=== PATIENT | female | born 1945 | race Caucasian/White ===

== ENCOUNTER 2017-11-11 08:16 | Emergency (ER) | payer MEDICARE, OTHER ==
--- NOTE | 2017-11-11 08:32 | EDM.PDOC ---
ED HPI GENERAL MEDICAL PROBLEM - General Chief Complaint: General Stated Complaint: ER Time Seen by Provider: 11/11/17 08:16 Source of Information: Reports: Patient, EMS Notes Reviewed, Family, RN, RN Notes Reviewed History Limitations: Reports: No Limitations - History of Present Illness INITIAL COMMENTS - FREE TEXT/NARRATIVE: Patient presents the emergency room at [facility] stating that around 3 AM this morning she was awoken with severe left shoulder pain and arm pain that radiated to the mid back. The patient states that she did not take anything for this. The patient states that she merely trying to get comfortable so she could fall back asleep. The patient states around 7 AM she had a syncopal episode with vomiting. At that time she called her daughter for assistance. EMS was then called. Upon arrival to the emergency room, the patient states her pain is located only in the left shoulder. No radiation down the left arm. The patient denies any shortness of breath. The patient denies any chest pain. The patient states she has some mid back pain that is more of an ache. The patient denies any focal neurological deficit. The patient currently is not having any ambulation problems. The patient states that when she does need to vomit she usually has a syncopal episode before after she vomits. Therefore this is nothing new. However the patient is concerned about the mid back and shoulder pain as she recently underwent PCI last month October 12, 2017 for a non-STEMI. The patient is concerned with her current symptoms given her recent cardiac history. The patient is currently taking Plavix and aspirin. The patient had an echocardiogram which showed an EF of 55% within normal limits. The patient is also diabetic and states that this is been well controlled. The patient is taking metoprolol and lisinopril for her blood pressure, which have been variable at times. 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 The patient is currently being treated for breast cancer. The patient states her last chemotherapy run was 2 days ago. The patient's recently had a CT scan on July 29, 2017 which did show progression of her cancer. 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: Endocrine/Metabolic History: Reports: Diabetes, Type II, Hypothyroidism Oncologic (Cancer) History: Reports: Breast, Other (See Below) Other Oncologic History: Recently diagnosed with stage 4 breast cancer - Past Surgical History Female Surgical History: Reports: Mastectomy, Oophorectomy Other Female Surgeries/Procedures: Bilateral masectomy Oncologic Surgical History: Reports: Mastectomy Other Oncologic Surgeries/Procedures: Bilateral Social & Family History - Tobacco Use Smoking Status *Q: Never Smoker ED ROS GENERAL - Review of Systems Review Of Systems: See Below Constitutional: Denies: Fever, Chills, Weakness Respiratory: Denies: Shortness of Breath, Cough Cardiovascular: Reports: Chest Pain (mid sternal into mid thoracic back), Palpitations GI/Abdominal: Reports: Nausea, Vomiting. Denies: Abdominal Pain Musculoskeletal: Reports: Shoulder Pain, Back Pain Skin: Reports: No Symptoms Neurological: Reports: No Symptoms. Denies: Dizziness, Headache ED EXAM, GENERAL - Physical Exam Exam: See Below Exam Limited By: No Limitations General Appearance: Alert, No Apparent Distress Respiratory/Chest: No Respiratory Distress, Lungs Clear, Normal Breath Sounds Cardiovascular: Normal Peripheral Pulses, Regular Rate, Rhythm Peripheral Pulses: 2+: Radial (L), Radial (R) GI/Abdominal: Soft, Non-Tender, Abnormal Bowel Sounds (Hypoactive) Back Exam: Normal Inspection Extremities: Normal Inspection Neurological: Alert, Oriented Skin Exam: Warm, Dry, Intact, Normal Color EKG INTERPRETATION EKG Date: 11/11/17 Time: 08:25 Rhythm: NSR Rate (Beats/Min): 97 [place]: Normal P-Wave: Present QRS: Normal ST-T: Normal QT: Normal OK/PQ Interval: 0.18 Comparison: No Change EKG Interpretation Comments: 1. Sinus Rhythm 2. Inferior MO, probably old Course - Vital Signs Last Recorded V/S: Last Vital Signs Temp 38.1 C 11/11/17 08:20 Pulse 102 H 11/11/17 08:20 Resp 20 11/11/17 08:20 BP 156/71 H 11/11/17 08:20 Pulse Ox 94 L 11/11/17 08:20 - Orders/Labs/Meds Orders: Active Orders 24 hr Category Date Time Status EKG 12 Lead [EKG Documentation Completion] [] STAT Care 11/11/17 08:33 EKG 12 Lead [EKG Documentation Completion] [RC] STAT Care 11/11/17 08:47 Active Implanted Port Access [RC] ONETIME Care 11/11/17 08:44 Active Chest 1V Frontal [CR] Stat Exams 11/11/17 08:34 Taken Sodium Chloride 0.9% [Saline Flush] Med 11/11/17 08:33 Active 10 ml FLUSH ASDIRECTED PRN Peripheral IV Insertion Adult [OM.PC] Routine Oth 11/11/17 08:33 Ordered Medication Orders Sodium Chloride (Saline Flush) 10 ml FLUSH ASDIRECTED PRN PRN Reason: Keep Vein Open Labs: Laboratory Tests 11/11/17 11/11/17 11/11/17 Range/Units 08:48 08:55 08:55 WBC 16.6 H (4.0-10.0) x10^3/uL RBC 3.15 L (4.00-5.50) x10^6/uL Hgb 10.7 L (12.0-16.0) g/dL Hct 31.9 L (33.0-47.0) % MCV 101.3 H D (78.0-93.0) fL MCH 34.0 H (26.0-32.0) pg MCHC 33.5 (32.0-36.0) g/dL RDW Coeff of [place] 13.1 (10.0-15.0) % Plt Count 128 L D (130-400) x10^3/uL Neut % (Auto) 97.1 H (50.0-80.0) % Lymph % (Auto) 2.0 L (25.0-50.0) % [place] % (Auto) 0.6 L (2.0-11.0) % Eos % (Auto) 0.2 (0.0-4.0) % Baso % (Auto) 0.1 L (0.2-1.2) % Sodium 135 L (136-145) mmol/L Potassium 4.7 (3.5-5.1) mmol/L Chloride 102 (98-107) mmol/L Carbon Dioxide 22 (21-32) mmol/L BUN 34 H (7-18) mg/dL Creatinine 1.5 H (0.55-1.02) mg/dL Est Cr Clr Drug Dosing TNP Estimated GFR (MDRD) 34 Glucose 239 H (74-106) mg/dL Lactic Acid (0.4-2.0) mmol/L Calcium 10.1 D (8.5-10.1) mg/dL Corrected Calcium 10.98 H (8.5-10.1) mg/dL Total Bilirubin 0.6 (0.2-1.0) mg/dL AST 12 L (15-37) U/L ALT 25 (14-59) U/L Alkaline Phosphatase 86 (46-116) U/L Creatine Kinase 29 (26-192) U/L Troponin I < 0.017 (<=0.056) ng/mL C-Reactive Protein (<=0.9) mg/dL Total Protein 7.1 (6.4-8.2) g/dL Albumin 2.9 L (3.4-5.0) g/dL Globulin 4.2 Albumin/Globulin Ratio 0.69 Amylase 74 (25-115) U/L Lipase 429 H (73-393) U/L Urine Color Light yellow (YELLOW) Urine Appearance Turbid H (CLEAR) Urine pH 5.5 (5.0-8.0) Ur Specific [place] 1.015 Urine Protein Trace H (NEGATIVE) mg/dL Urine Glucose (UA) Negative (NEGATIVE) mg/dL Urine Ketones Negative (NEGATIVE) mg/dL Urine Occult Blood Trace-lysed H (NEGATIVE) Urine Nitrite Positive H (NEGATIVE) Urine Bilirubin Negative (NEGATIVE) Urine Urobilinogen 0.2 (0.2) EU/dL Ur Leukocyte Esterase Trace H (NEGATIVE) Urine RBC 0-5 (NOT SEEN) /HPF Urine WBC 20-30 H (NOT SEEN) /HPF Urine WBC Clumps Few Ur Squamous Epith Cells Rare (NEGATIVE) /HPF Ur Renal Epithelial Cell Occasional H (NEGATIVE) /HPF Urine Bacteria Many H (NEGATIVE) /HPF Urine Mucus Few H (NEGATIVE) /LPF 11/11/17 11/11/17 Range/Units 08:55 08:55 WBC (4.0-10.0) x10^3/uL RBC (4.00-5.50) x10^6/uL Hgb (12.0-16.0) g/dL Hct (33.0-47.0) % MCV (78.0-93.0) fL MCH (26.0-32.0) pg MCHC (32.0-36.0) g/dL RDW Coeff of [place] (10.0-15.0) % Plt Count (130-400) x10^3/uL Neut % (Auto) (50.0-80.0) % Lymph % (Auto) (25.0-50.0) % [place] % (Auto) (2.0-11.0) % Eos % (Auto) (0.0-4.0) % Baso % (Auto) (0.2-1.2) % Sodium (136-145) mmol/L Potassium (3.5-5.1) mmol/L Chloride (98-107) mmol/L Carbon Dioxide (21-32) mmol/L BUN (7-18) mg/dL Creatinine (0.55-1.02) mg/dL Est Cr Clr Drug Dosing Estimated GFR (MDRD) Glucose (74-106) mg/dL Lactic Acid 2.0 (0.4-2.0) mmol/L Calcium (8.5-10.1) mg/dL Corrected Calcium (8.5-10.1) mg/dL Total Bilirubin (0.2-1.0) mg/dL AST (15-37) U/L ALT (14-59) U/L Alkaline Phosphatase (46-116) U/L Creatine Kinase (26-192) U/L Troponin I (<=0.056) ng/mL C-Reactive Protein 25.4 H (<=0.9) mg/dL Total Protein (6.4-8.2) g/dL Albumin (3.4-5.0) g/dL Globulin Albumin/Globulin Ratio Amylase (25-115) U/L Lipase (73-393) U/L Urine Color (YELLOW) Urine Appearance (CLEAR) Urine pH (5.0-8.0) Ur Specific [place] Urine Protein (NEGATIVE) mg/dL Urine Glucose (UA) (NEGATIVE) mg/dL Urine Ketones (NEGATIVE) mg/dL Urine Occult Blood (NEGATIVE) Urine Nitrite (NEGATIVE) Urine Bilirubin (NEGATIVE) Urine Urobilinogen (0.2) EU/dL Ur Leukocyte Esterase (NEGATIVE) Urine RBC (NOT SEEN) /HPF Urine WBC (NOT SEEN) /HPF Urine WBC Clumps Ur Squamous Epith Cells (NEGATIVE) /HPF Ur Renal Epithelial Cell (NEGATIVE) /HPF Urine Bacteria (NEGATIVE) /HPF Urine Mucus (NEGATIVE) /LPF Meds: Medications Generic Name Dose Route Start Last Admin Trade Name Freq PRN Reason Stop Dose Admin Sodium Chloride 10 ml 11/11/17 08:33 Saline Flush FLUSH ASDIRECTED PRN Keep Vein Open Discontinued Medications Generic Name Dose Route Start Last Admin Trade Name Freq PRN Reason Stop Dose Admin Heparin Sodium (Porcine) 500 units 11/11/17 10:21 Heparin Lock Flush 100 Units/Ml IVPUSH 11/11/17 10:22 ONETIME ONE Sodium Chloride 1,000 mls @ 999 mls/hr 11/11/17 08:45 11/11/17 09:05 Normal Saline IV 11/11/17 09:45 999 mls/hr ONETIME ONE Administration Ondansetron HCl 4 mg 11/11/17 09:10 11/11/17 09:20 Zofran IVPUSH 11/11/17 09:11 4 mg ONETIME ONE Administration Departure - Departure Time of Disposition: 10:35 Disposition: Home, Self-Care 01 Condition: Good Clinical Impression: Lung infiltrate Leukocytosis Qualifiers: Leukocytosis type: unspecified Qualified Code(s): D72.829 - Elevated white blood cell count, unspecified Fever Qualifiers: Fever type: unspecified Qualified Code(s): R50.9 - Fever, unspecified - Discharge Information Prescriptions: Amoxicillin/Potassium Clav [Augmentin 875-125 Tablet] 1 each PO BID 10 Days #20 tablet Instructions: Leukocytosis, Fever, Adult, [id number] Referrals: Marcin Schaefer III, DO [Primary Care Provider] - Forms: ED Department Discharge Additional Instructions: 1. Stay well hydrated and rest 2. Take antibiotic for the full coarse, even if you are feeling better 3. See your Primary in 7-10 days to make sure lungs are better 4. May use Tylenol for discomfort as well 5. Call with any questions/concerns - Problem List Review Problem List Initiated/Reviewed/Updated: Yes - My Orders Last 24 Hours: My Active Orders 11/11/17 08:33 EKG 12 Lead [EKG Documentation Completion] [RC] STAT Sodium Chloride 0.9% [Saline Flush] 10 ml FLUSH ASDIRECTED PRN Peripheral IV Insertion Adult [OM.PC] Routine 11/11/17 08:34 Chest 1V Frontal [CR] Stat 11/11/17 08:44 Implanted Port Access [RC] ONETIME 11/11/17 08:47 EKG 12 Lead [EKG Documentation Completion] [RC] STAT - Assessment/Plan Last 24 Hours: My Active Orders 11/11/17 08:33 EKG 12 Lead [EKG Documentation Completion] [RC] STAT Sodium Chloride 0.9% [Saline Flush] 10 ml FLUSH ASDIRECTED PRN Peripheral IV Insertion Adult [OM.PC] Routine 11/11/17 08:34 Chest 1V Frontal [CR] Stat 11/11/17 08:44 Implanted Port Access [RC] ONETIME 11/11/17 08:47 EKG 12 Lead [EKG Documentation Completion] [RC] STAT Assessment:: 1. LLL Infiltrate 2. Leukocytosis 3. Fever Plan: Thoroughly and extensively discussed the laboratory and chest x-ray findings with the patient. I did offer admission for the left lower lobe infiltrate, however the patient pleasantly declined. I did discuss the patient that if her symptoms become worse she needs to return at which time she will be admitted. I will start the patient on antibiotics for the left lower lobe infiltrate. This is also medically necessary because she is immunocompromised being on chemotherapy so puts her at a higher risk. Like the patient to follow-up in clinic over the next 7-10 days to check for resolution of the infiltrate. The patient verbalizes understanding and wishes to proceed. All questions answered. Patient was discharged in hemodynamically stable condition.
[2017-11-11] MEDS ORDERED: Sodium Chloride 0.9% 10 ML Syringe FLUSH PRN (08:33)
[2017-11-11] MEDS ORDERED: Sodium Chloride 0.9% 1,000 ML IV ONE (08:45)
[2017-11-11] MEDS ORDERED: Ondansetron 4 MG/2 ML SDV IVPUSH ONE (09:10)
[2017-11-11 09:38] LABS: CHLORIDE,CL 102 mmol/L (98-107); SODIUM,NA 135 mmol/L (136-145)
[2017-11-11 10:01] VITALS: BP 156/71
== END 2017-11-11 10:45 | disposition home or self-care (01) ==
LOC: VM.ED 08:16
DX: D72.829 Elevated white blood cell count, unspecified (principal); R91.8 Other nonspecific abnormal finding of lung field; E11.9 Type 2 diabetes mellitus without complications; E03.9 Hypothyroidism, unspecified
CPT/HCPCS: 71045; 80053; 81001; 82150; 82550; 83605; 83690; 84484; 85025; 86140; 93005; 96361; 96374; 99285; J1642; J2405; J7030; J7050

== ENCOUNTER 2017-11-12 10:15 | Inpatient (IN) | payer MEDICARE, OTHER ==
--- NOTE | 2017-11-12 11:18 | EDM.PDOC ---
ED HPI GENERAL MEDICAL PROBLEM - General Chief Complaint: General Stated Complaint: Shakey; Dizzy; labile BP Time Seen by Provider: 11/12/17 10:25 Source of Information: Reports: Patient, Family, Old Records, RN, RN Notes Reviewed History Limitations: Reports: No Limitations - History of Present Illness INITIAL COMMENTS - FREE TEXT/NARRATIVE: Patient presents to the ED at [facility] feeling dizzy, shakey, and somewhat nauseated. Symptoms started earlier this AM. She was seen in this ER yesterday and diagnosed with LLL infiltrate and placed on Augmentin. Patient has not had any vomiting. She feels her blood pressure has been labile. She is taking her medication as directed. Spoke with Dr. Sue Farmer this morning and states she is ok having the patient admitted to this facility despite being [facility] for chemo for tx of breast CA. CURB 65 score today is 2 with a 6.8% 30-day mortality. Onset: Today - Related Data Allergies Allergy/AdvReac Type Severity Reaction Status Date / Time Tkdjghp-Dby-Qsc Reductase Allergy Other Verified 11/12/17 10:45 Inhibitor Home Meds: Home Meds Amoxicillin/Potassium Clav [Augmentin 875-125 Tablet] 1 each PO BID 10 Days #20 tablet 11/11/17 [Rx] Ascorbic Acid [Vitamin C] 250 mg PO DAILY 11/12/17 [History] Aspirin [Halfprin] 81 mg PO DAILY 11/12/17 [History] Calcium Carb & Citrate/Vit D3 [Calcium + D3 ER Tablet] 1 each PO DAILY 11/12/17 [History] Cholecalciferol (Vitamin D3) [Vitamin D3] 5,000 unit PO DAILY 11/12/17 [History] Clopidogrel [Plavix] 75 mg PO DAILY 11/12/17 [History] Cyanocobalamin (Vitamin B-12) [B-12] 1,000 mcg PO DAILY 11/12/17 [History] Cyanocobalamin (Vitamin B-12) [Vitamin B-12] 100 mcg PO DAILY 11/12/17 [History] Ferrous Sulfate 325 mg PO DAILY 11/12/17 [History] Folic Acid 1 mg PO DAILY 11/12/17 [History] Furosemide [Lasix] 40 mg PO DAILY 11/12/17 [History] Levothyroxine 75 mcg PO ACBREAKFAST 11/12/17 [History] Lidocaine/Prilocaine [EMLA Crm] 1 dose TP ASDIRECTED PRN 11/12/17 [History] Lisinopril 40 mg PO DAILY 11/12/17 [History] Lovastatin [Mevacor] 20 mg PO WITHDINNER 11/12/17 [History] Lutein/Minerals/Vit A,C & E [Ocuvite] 1 tab PO DAILY 11/12/17 [History] Metoprolol Tartrate [Lopressor] 12.5 mg PO Q12HR 11/12/17 [History] Nitroglycerin 0.4 mg SL Q5M PRN 11/12/17 [History] Ondansetron HCl [Zofran] 8 mg PO TID PRN 11/12/17 [History] Potassium Chloride [Klor-Con M20] 40 meq PO DAILY 11/12/17 [History] Prochlorperazine Maleate [Compazine] 10 mg PO QID PRN 11/12/17 [History] Ubidecarenone [Coenzyme Q10] 100 mg PO DAILY 11/12/17 [History] amLODIPine [Norvasc] 5 mg PO DAILY 11/12/17 [History] glipiZIDE [Glipizide ER] 2.5 mg PO DAILY 11/12/17 [History] metFORMIN [Glucophage] 1,000 mg PO BIDMEALS 11/12/17 [History] Past Medical History Cardiovascular History: Reports: Hypertension Respiratory History: Reports: Other (See Below) 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: Endocrine/Metabolic History: Reports: Diabetes, Type II, Hypothyroidism Oncologic (Cancer) History: Reports: Breast, Other (See Below) Other Oncologic History: Recently diagnosed with stage 4 breast cancer - Past Surgical History HEENT Surgical History: Reports: Tonsillectomy Female Surgical History: Reports: Mastectomy, Oophorectomy Other Female Surgeries/Procedures: Bilateral masectomy Oncologic Surgical History: Reports: Mastectomy Other Oncologic Surgeries/Procedures: Bilateral Social & Family History - Tobacco Use Smoking Status *Q: Never Smoker - Recreational Drug Use Recreational Drug Use: No ED ROS GENERAL - Review of Systems Review Of Systems: See Below Constitutional: Reports: Weakness. Denies: Fever, Chills Respiratory: Denies: Shortness of Breath, Cough Cardiovascular: Denies: Chest Pain, Palpitations GI/Abdominal: Reports: Nausea. Denies: Abdominal Pain, Vomiting Skin: Reports: No Symptoms Neurological: Reports: Dizziness. Denies: Headache ED EXAM, GENERAL - Physical Exam Exam: See Below Exam Limited By: No Limitations General Appearance: Alert, No Apparent Distress Respiratory/Chest: No Respiratory Distress, Crackles (LLL) Cardiovascular: Normal Peripheral Pulses, Regular Rate, Rhythm Peripheral Pulses: 2+: Radial (L), Radial (R) GI/Abdominal: Soft, Non-Tender, Abnormal Bowel Sounds (Hypoactive) Neurological: Alert, Oriented Skin Exam: Warm, Dry, Intact, Normal Color, No Rash Course - Vital Signs Last Recorded V/S: Last Vital Signs Temp 36.6 C 11/12/17 10:20 Pulse 99 11/12/17 10:20 Resp 16 11/12/17 10:20 BP 126/57 L 11/12/17 10:20 Pulse Ox 95 11/12/17 10:20 - Orders/Labs/Meds Orders: Active Orders 24 hr Category Date Time Status Chest 2V [CR] Stat Exams 11/12/17 11:12 Taken CULTURE BLOOD [BC] Stat Lab 11/12/17 10:35 Results CULTURE BLOOD [BC] Stat Lab 11/12/17 10:40 Received Blood Culture x2 Reflex Set [OM.PC] Stat Oth 11/12/17 10:25 Ordered Medication Orders Sodium Chloride (Normal Saline) 1,000 mls @ 999 mls/hr IV ONETIME ONE Stop: 11/12/17 13:04 Sodium Chloride (Saline Flush) 10 ml FLUSH ASDIRECTED PRN PRN Reason: Keep Vein Open Labs: Laboratory Tests 11/12/17 11/12/17 11/12/17 Range/Units 10:40 10:40 10:40 WBC 16.5 H (4.0-10.0) x10^3/uL RBC 3.00 L (4.00-5.50) x10^6/uL Hgb 10.3 L (12.0-16.0) g/dL Hct 30.4 L (33.0-47.0) % MCV 101.3 H (78.0-93.0) fL MCH 34.3 H (26.0-32.0) pg MCHC 33.9 (32.0-36.0) g/dL RDW Coeff of [place] 13.2 (10.0-15.0) % Plt Count 134 (130-400) x10^3/uL Neut % (Auto) 97.4 H (50.0-80.0) % Lymph % (Auto) 1.9 L (25.0-50.0) % [place] % (Auto) 0.1 L (2.0-11.0) % Eos % (Auto) 0.5 (0.0-4.0) % Baso % (Auto) 0.1 L (0.2-1.2) % Sodium 134 L (136-145) mmol/L Potassium 4.3 (3.5-5.1) mmol/L Chloride 99 (98-107) mmol/L Carbon Dioxide 24 (21-32) mmol/L BUN 31 H (7-18) mg/dL Creatinine 1.6 H (0.55-1.02) mg/dL Est Cr Clr Drug Dosing 26.64 mL/min Estimated GFR (MDRD) 32 Glucose 373 H (74-106) mg/dL Lactic Acid 3.0 H* (0.4-2.0) mmol/L Calcium 9.5 (8.5-10.1) mg/dL C-Reactive Protein 35.1 H (<=0.9) mg/dL Meds: Medications Generic Name Dose Route Start Last Admin Trade Name Freq PRN Reason Stop Dose Admin Sodium Chloride 1,000 mls @ 999 mls/hr 11/12/17 12:04 Normal Saline IV 11/12/17 13:04 ONETIME ONE Sodium Chloride 10 ml 11/12/17 12:03 Saline Flush FLUSH ASDIRECTED PRN Keep Vein Open Discontinued Medications Generic Name Dose Route Start Last Admin Trade Name Freq PRN Reason Stop Dose Admin Cefepime HCl 2 gm 11/12/17 12:02 Maxipime IV 11/12/17 12:03 ONETIME ONE Departure - Departure Time of Disposition: 12:06 Disposition: Admitted As Inpatient 64 Condition: Good Clinical Impression: Lung infiltrate, Acute kidney injury (nontraumatic) Sepsis Qualifiers: Sepsis type: sepsis due to unspecified organism Qualified Code(s): A41.9 - Sepsis, unspecified organism - Discharge Information ED Communication - ED Communication Date/Time Date: 11/12/17 Time Called: 11:58 - Discussed Case With (1) Discussed Case With (1): Admitting Provider Person/s Notified (1): Daria Cerna - Conversation Summary Admitting Provider Agreed to Patient's Admission: Yes Patient Aware of Amendments fo Care Plan: Yes - Problem List Review Problem List Initiated/Reviewed/Updated: Yes - My Orders Last 24 Hours: My Active Orders 11/12/17 10:25 Blood Culture x2 Reflex Set [OM.PC] Stat 11/12/17 10:35 CULTURE BLOOD [BC] Stat 11/12/17 10:40 CULTURE BLOOD [BC] Stat 11/12/17 11:12 Chest 2V [CR] Stat - Assessment/Plan Last 24 Hours: My Active Orders 11/12/17 10:25 Blood Culture x2 Reflex Set [OM.PC] Stat 11/12/17 10:35 CULTURE BLOOD [BC] Stat 11/12/17 10:40 CULTURE BLOOD [BC] Stat 11/12/17 11:12 Chest 2V [CR] Stat Assessment:: Lung Infiltrate MARCO A Sepsis Plan: Case discussed with Dr. Cerna. Patient will be admitted acute for Sepsis, MARCO A , Lung infiltrate.
[2017-11-12] MEDS ORDERED: Cefepime 1 GM Vial IV ONE (12:02)
[2017-11-12] MEDS ORDERED: Sodium Chloride 0.9% 10 ML Syringe FLUSH PRN (12:03)
[2017-11-12] MEDS ORDERED: Sodium Chloride 0.9% 1,000 ML IV ONE (12:04)
[2017-11-12] MEDS ORDERED: Acetaminophen 325 MG Tab PO PRN (13:04)
[2017-11-12] MEDS ORDERED: Azithromycin 250 MG Tab PO ONE (13:29)
[2017-11-12] MEDS ORDERED: Lidocaine/Prilocaine 2.5-2.5% Crm 5 GM Tube TOP PRN (17:20)
[2017-11-12] MEDS ORDERED: Lactated Ringers 1,000 ML IV SCH (17:30)
--- NOTE | 2017-11-12 17:34 | PCM.HP ---
H&P History of Present Illness - General Date of Service: 11/12/17 Admit Problem/Dx: Admission Diagnosis/Problem Admission Diagnosis/Problem Sepsis Source of Information: Patient History Limitations: Reports: No Limitations - History of Present Illness Initial Comments - Free Text/Narative: Mrs. Sparks is a 72 yo female who presented to the ER this morning for evaluation of borderline blood pressures (90's/50's) at home with associated palpitations that were present when she woke up this morning. She had been seen in the ER yesterday for evaluation of left chest/scapula/shoulder pain and was ruled out for a cardiac process. There was concern for a left lung infiltrate. It was recommended that she get admitted for initial antibiotic therapy and she declined. She was started on augmentin and encouraged to return for worsening symptoms. She has had no recurrence of the pain for which she presented yesterday. But this morning when she woke up, she just did not feel well. She felt nauseous and was having palpitations. She checked her blood pressure and found it to be low. She has a chronic cough and chronic sinusitis that are essentially unchanged. She denies any shortness of breath. No fever or chills. No dysuria, frequency, urgency, flank pain, or abdominal pain. She really denies any other symptoms. She is currently being actively treated for breast cancer and got her most recent chemotherapy dose earlier this week. She tolerated this very well. - Related Data Allergies/Adverse Reactions: Allergies Allergy/AdvReac Type Severity Reaction Status Date / Time [id number] Reductase Allergy Other Verified 11/12/17 10:45 Inhibitor Home Medications: Home Meds Amoxicillin/Potassium Clav [Augmentin 875-125 Tablet] 1 each PO BID 10 Days #20 tablet 11/11/17 [Rx] Ascorbic Acid [Vitamin C] 250 mg PO DAILY 11/12/17 [History] Aspirin [Halfprin] 81 mg PO DAILY 11/12/17 [History] Calcium Carb & Citrate/Vit D3 [Calcium + D3 ER Tablet] 2 each PO DAILY 11/12/17 [History] Cholecalciferol (Vitamin D3) [Vitamin D3] 5,000 unit PO DAILY 11/12/17 [History] Clopidogrel [Plavix] 75 mg PO DAILY 11/12/17 [History] Cyanocobalamin (Vitamin B-12) [B-12] 1,000 mcg PO DAILY 11/12/17 [History] Ferrous Sulfate 325 mg PO DAILY 11/12/17 [History] Folic Acid 1 mg PO DAILY 11/12/17 [History] Furosemide [Lasix] 40 mg PO DAILY 11/12/17 [History] Levothyroxine 75 mcg PO ACBREAKFAST 11/12/17 [History] Lidocaine/Prilocaine [EMLA Crm] 1 dose TP ASDIRECTED PRN 11/12/17 [History] Lisinopril 40 mg PO DAILY 11/12/17 [History] Lovastatin 20 mg PO BEDTIME 11/12/17 [History] Metoprolol Tartrate [Lopressor] 12.5 mg PO BID 11/12/17 [History] Multivitamin with Minerals [Multiple Vitamin] 1 tab PO DAILY 11/12/17 [History] Nitroglycerin 0.4 mg SL Q5M PRN 11/12/17 [History] Ondansetron HCl [Zofran] 8 mg PO TID PRN 11/12/17 [History] Potassium Chloride [Klor-Con M20] 40 meq PO DAILY 11/12/17 [History] Prochlorperazine Maleate [Compazine] 10 mg PO QID PRN 11/12/17 [History] Ubidecarenone [Coenzyme Q10] 100 mg PO DAILY 11/12/17 [History] amLODIPine Besylate [Amlodipine Besylate] 5 mg PO DAILY 11/12/17 [History] glipiZIDE [Glipizide ER] 2.5 mg PO DAILY 11/12/17 [History] metFORMIN [Glucophage] 1,000 mg PO BIDMEALS 11/12/17 [History] Past Medical History HEENT History: Reports: None Cardiovascular History: Reports: CAD, High Cholesterol, Hypertension, [place], PTCA Respiratory History: Reports: Other (See Below) 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 Gastrointestinal History: Reports: None Genitourinary History: Reports: None [employer] History: Reports: Musculoskeletal History: Reports: None Neurological History: Reports: None Psychiatric History: Reports: None Endocrine/Metabolic History: Reports: Diabetes, Type II, Hypothyroidism Hematologic History: Reports: None Immunologic History: Reports: None Oncologic (Cancer) History: Reports: Breast, Other (See Below) Other Oncologic History: Recently diagnosed with stage 4 breast cancer Dermatologic History: Reports: None - Infectious Disease History Infectious Disease History: Reports: None - Past Surgical History HEENT Surgical History: Reports: Tonsillectomy Female Surgical History: Reports: Hysterectomy, Mastectomy, Oophorectomy Other Female Surgeries/Procedures: Bilateral masectomy Oncologic Surgical History: Reports: Mastectomy Other Oncologic Surgeries/Procedures: Bilateral Social & Family History - Family History Cardiac: Reports: CAD Endocrine/Metabolic: Reports: Diabetes, type II, Hypothyroidism - Tobacco Use Smoking Status *Q: Never Smoker - Alcohol Use Alcohol Use History: No Alcohol Use in Last Twelve Months: No - Recreational Drug Use Recreational Drug Use: No - Living Situation & Occupation Living situation: Reports: , Alone Occupation: Retired H&P Review of Systems - Review of Systems: Review Of Systems: See Below General: Reports: Malaise, Weakness, Fatigue HEENT: Reports: No Symptoms Pulmonary: Reports: Cough. Denies: Shortness of Breath, Pleuritic Chest Pain Cardiovascular: Reports: No Symptoms Gastrointestinal: Reports: No Symptoms Genitourinary: Reports: No Symptoms Musculoskeletal: Reports: No Symptoms Skin: Reports: No Symptoms Psychiatric: Reports: No Symptoms Neurological: Reports: No Symptoms Exam - Exam Exam: See Below - Vital Signs Vital Signs: Last Vital Signs Temp 36.8 C 11/12/17 17:08 Pulse 89 11/12/17 17:08 Resp 18 11/12/17 17:08 BP 113/56 L 11/12/17 17:08 Pulse Ox 95 11/12/17 17:08 Weight: 72.575 kg - Exam General: Alert, Oriented, Cooperative HEENT: Conjunctiva Clear, Mucosa Moist & [place], Posterior Pharynx Clear, Pupils Equal, Pupils Reactive, TMs Clear Neck: Supple, Trachea Midline. No: Lymphadenopathy, Thyromegaly Lungs: Normal Respiratory Effort, Crackles (left lower lobe; lungs otherwise clear bilaterally) Cardiovascular: Normal S1, Normal S2, Irregular Rhythm, Tachycardia. No: Systolic Murmur, Diastolic Murmur GI/Abdominal Exam: Normal Bowel Sounds, Soft, Non-Tender, No Organomegaly, No Distention, No Mass Extremities: Normal Inspection, Non-Tender, No Pedal Edema, Normal Capillary Refill Peripheral Pulses: 2+: Radial (L), Radial (R), Posterior Tibial (L), Posterior Tibial (R) Skin: Warm, Dry, Intact Neuro Extensive - Mental Status: Alert, Oriented x3, Normal Mood/Affect, Normal Cognition - Patient Data Lab Results Last 24 hrs: Laboratory Results - last 24 hr 11/12/17 Range/Units 17:14 POC Glucose 364 H (74-106) mg/dL Result Diagrams: 11/12/17 10:40 11/12/17 10:40 *Q Meaningful Use (ADM) - VTE *Q VTE Criteria *Q: - Stroke *Q Stroke Criteria *Q: - AMI *Q AMI Criteria *Q: - Problem List (1) Community acquired pneumonia SNOMED Code(s): 535385896 ICD Code: J18.9 - PNEUMONIA, UNSPECIFIED ORGANISM Status: Acute Current Visit: Yes Problem Details: - Patient is not really having traditional symptoms. - Only symptom really was the left chest/scapula pain, which is now resolved. - However, she does have exam and chest x-ray findings suggesting a left lower lobe pneumonia. - U/A yesterday was borderline but she is not having any UTI symptoms. No symptoms of any other infectious source. - Therefore, most likely diagnosis is community acquired pneumonia. - She is not ill appearing enough to justify full treatment for hospital acquired pneumonia, especially in light of no worsening overnight with only treatment with augmentin. - Would treat a little more broadly than for usual community acquired pneumonia and do cefepime instead of ceftriaxone. Will also add azithromycin. - Will have a low threshold for addition of vancomycin and a fluoroquinolone. - Recheck labs in the am. Qualifiers: Laterality: left Lung location: lower lobe of lung Qualified Code(s): J18.1 - Lobar pneumonia, unspecified organism (2) Sepsis SNOMED Code(s): 41095557 ICD Code: A41.9 - SEPSIS, UNSPECIFIED ORGANISM Status: Acute Current Visit: Yes Problem Details: - Meets sepsis criteria with tachycardia and leukocytosis. - Likely source is CAP as above. - Antibiotics as above. - Initial lactate elevated. Patient will recieve IV fluids. Had planned recheck in 6 hours but this was not done until a bit later than that. Is down but still high. IV fluids will be continued and lactate will be rechecked in the am. - Blood cultures pending. Qualifiers: Sepsis type: sepsis due to unspecified organism Qualified Code(s): A41.9 - Sepsis, unspecified organism (3) Acute kidney injury (nontraumatic) SNOMED Code(s): 88876862 ICD Code: N17.9 - ACUTE KIDNEY FAILURE, UNSPECIFIED Status: Acute Current Visit: Yes Problem Details: - Creatinine up to 1.6 from baseline of 1.1-1.2. - Likely prerenal. - As above, patient will get IV fluids. - Will recheck in the am. - Further work-up will be pursued of does not improve with fluids only. (4) Atrial fibrillation SNOMED Code(s): 24894553 ICD Code: I48.91 - UNSPECIFIED ATRIAL FIBRILLATION Status: Acute Current Visit: Yes Problem Details: - EKG in the ER shows atrial fibrillation with controlled ventricular response. - Discussed this diagnosis briefly. - Rate controlled on current metoprolol dosing. - Likely secondary to stress of acute illness and dehydration. - Patient is already on dual anti-platelet therapy that cannot really be changed this close to her PCI. - She already converted by the time she got to the floor. - Her CHADS2-VASC is high at 5 but given short duration of the atrial fibrillation, no urgency for anticoagulation. - She is on telemetry and will be monitored for any recurrence. - She will need cardiology follow-up as an outpatient and this can be sorted out at that time. Qualifiers: Atrial fibrillation type: paroxysmal Qualified Code(s): I48.0 - Paroxysmal atrial fibrillation (5) Coronary artery disease SNOMED Code(s): 55503006 ICD Code: I25.10 - ATHSCL HEART DISEASE OF [place] CORONARY ARTERY W/O ANG PCTRS Status: Chronic Current Visit: Yes Problem Details: - Underwent PCI in September and is doing well. - Ruled out for cardiac cause of symptoms yesterday. Only had 1 troponin but that was 6 hours after her symptoms started so 1 is adequate. - Continue home medications. Qualifiers: Coronary Disease-Associated Artery/Lesion type: [place] artery [place] vs. transplanted heart: [place] heart Associated angina: without angina Qualified Code(s): I25.10 - Atherosclerotic heart disease of [place] coronary artery without angina pectoris (6) Diabetes mellitus SNOMED Code(s): 71773921 ICD Code: E11.9 - TYPE 2 DIABETES MELLITUS WITHOUT COMPLICATIONS Status: Chronic Current Visit: Yes Problem Details: - Glucose high on admission. - Hold metformin in light of MARCO A and lactic acidosis. - Continue glipizide. - QID glucoses with low dose insulin correction scale. Qualifiers: Diabetes mellitus type: type 2 Diabetes mellitus complication status: without complication Diabetes mellitus halfway insulin use: without director of agriculture use Qualified Code(s): E11.9 - Type 2 diabetes mellitus without complications (7) Hypertension SNOMED Code(s): 73256560 ICD Code: I10 - ESSENTIAL (PRIMARY) HYPERTENSION Status: Chronic Current Visit: Yes Problem Details: - BP's acceptable at this time. - Will hold lisinopril and lasix until we see what her creatinine is tomorrow. Continue amlodipine and metoprolol. Qualifiers: Hypertension type: essential hypertension Qualified Code(s): I10 - Essential (primary) hypertension (8) Hypothyroidism SNOMED Code(s): 91250039 ICD Code: E03.9 - HYPOTHYROIDISM, UNSPECIFIED Status: Chronic Current Visit: Yes Problem Details: - Levothyroxine continued. Qualifiers: Hypothyroidism type: acquired Qualified Code(s): E03.9 - Hypothyroidism, unspecified (9) Breast cancer, stage 4 SNOMED Code(s): 412778552 ICD Code: C50.919 - MALIGNANT NEOPLASM OF UNSP SITE OF UNSPECIFIED FEMALE BREAST Status: Chronic Current Visit: Yes Problem Details: - Patient's oncologist was contacted and did not feel she required transfer to [place]. Her chemotherapy agent is not likely to cause significant neutropenia or other issues. Qualifiers: Laterality: unspecified laterality Qualified Code(s): C50.919 - Malignant neoplasm of unspecified site of unspecified female breast Problem List Initiated/Reviewed/Updated: Yes Orders Last 24hrs: Active Orders 24 hr Category Date Time Status Antiembolic Devices [RC] 08,20 Care 11/12/17 13:06 Active Blood Glucose Check, Bedside [RC] 07,11,17,20 Care 11/12/17 13:04 Active Cardiac Monitoring [RC] 06,10,14,18,22,02 Care 11/12/17 13:04 Active Implanted Port Access [RC] DAILY Care 11/12/17 12:17 Active Notify Provider Vital Signs [RC] 06,10,14,18,22,02 Care 11/12/17 13:04 Active Oxygen Therapy [RC] .PRN Care 11/12/17 13:04 Active Up With Assistance [RC] ASDIRECTED Care 11/12/17 13:04 Active VTE/DVT Education [RC] .PRN Care 11/12/17 13:04 Active Vital Signs [RC] 06,10,14,18,22,02 Care 11/12/17 13:04 Active Regular Diet [DIET] Diet 11/12/17 Dinner Active BASIC METABOLIC PANEL,BMP [CHEM] Routine Lab 11/13/17 05:11 Ordered C-REACTIVE PROTEIN [CHEM] Routine Lab 11/13/17 05:11 Ordered CBC WITH AUTO DIFF [HEME] Routine Lab 11/13/17 05:11 Ordered LACTIC ACID [CHEM] Routine Lab 11/12/17 17:18 Ordered Acetaminophen [Tylenol] Med 11/12/17 13:04 Active 650 mg PO Q4H PRN Aspirin [Halfprin] Med 11/13/17 08:00 Ordered 81 mg PO DAILY Clopidogrel [Plavix] Med 11/13/17 08:00 Ordered 75 mg PO DAILY Lactated Ringers @ 100 MLS/HR(1,000ml) Med 11/12/17 17:30 Ordered Lactated Ringers [Ringers, Lactated] 1,000 ml IV ASDIRECTED Levothyroxine Med 11/13/17 07:00 Ordered 75 mcg PO ACBREAKFAST Lidocaine/Prilocaine [EMLA Crm] Med 11/12/17 17:20 Ordered 1 dose TOP ASDIRECTED PRN Lovastatin [Lovastatin] Med 11/12/17 20:00 Ordered 20 mg PO BEDTIME Metoprolol Tartrate [Lopressor] Med 11/12/17 20:00 Ordered 12.5 mg PO BID Ondansetron HCl Med 11/12/17 17:20 Ordered 8 mg PO TID PRN Sodium Chloride 0.9% [Saline Flush] Med 11/12/17 12:03 Active 10 ml FLUSH ASDIRECTED PRN amLODIPine [Norvasc] Med 11/13/17 08:00 Ordered 5 mg PO DAILY glipiZIDE [Glucotrol XL] Med 11/13/17 08:00 Ordered 2.5 mg PO DAILY Peripheral IV Insertion Adult [OM.PC] Routine Oth 11/12/17 12:03 Ordered Sequential Compression Device [OM.PC] Per Unit Routine Oth 11/12/17 13:05 Ordered Resuscitation Status Routine Resus Stat 11/12/17 13:04 Ordered Medication Orders Acetaminophen (Tylenol) 650 mg PO Q4H PRN PRN Reason: Pain (Mild 1-3)/fever Amlodipine Besylate (Norvasc) 5 mg PO DAILY [facility] Aspirin (Halfprin) 81 mg PO DAILY [facility] Clopidogrel Bisulfate (Plavix) 75 mg PO DAILY [facility] Glipizide (Glucotrol Xl) 2.5 mg PO DAILY [facility] Lactated Ringer's (Ringers, Lactated) 1,000 mls @ 100 mls/hr IV ASDIRECTED [facility]ORGE Stop: 11/13/17 03:31 Levothyroxine Sodium (Levothyroxine) 75 mcg PO ACBREAKFAST JORGE Lidocaine/Prilocaine (Emla Crm) gm TOP ASDIRECTED PRN PRN Reason: port access Metoprolol Tartrate (Lopressor) 12.5 mg PO BID [facility]GE Non-Formulary Medication (Lovastatin [Lovastatin]) 20 mg PO BEDTIME [facility] Non-Formulary Medication (Ondansetron Hcl) 8 mg PO TID PRN PRN Reason: Nausea Sodium Chloride (Saline Flush) 10 ml FLUSH ASDIRECTED PRN PRN Reason: Keep Vein Open Assessment/Plan Comment:: 72 yo female admitted with sepsis and MARCO A secondary to community acquired pneumonia. See details under problems above. She will be treated with cefepime and azithromycin. Hold vitamins and metformin. Also hold lisinopril and lasix until lab results tomorrow am. Otherwise, continue home medications. She meets criteria for inpatient admission. Certainly would anticipate 2 nights of admission as well; however, the patient is very interested in getting home as soon as possible. Therefore, we will see how she is tomorrow and then go from there. Will hold off on pharmacologic VTE prophylaxis until it is determined what her length of stay will be. She is also at risk for bleeding in light of dual antiplatelet therapy. Will do SCD's and encourage ambulation. Code status is full.
[2017-11-12] MEDS ORDERED: Ondansetron 4 MG Tab.DIS PO PRN (17:36)
[2017-11-12] MEDS: Insulin Aspart 100 Units/ML 3 ML Pen SUBCUT SCH (18:47)
[2017-11-12] MEDS: Metoprolol Tartrate 25 MG Tab PO SCH (19:54)
[2017-11-12] MEDS ORDERED: [UNRECOGNIZED DRUG - REMARK] PO SCH (20:00)
[2017-11-12] MEDS ORDERED: Melatonin 3 MG Tab PO SCH (21:00)
[2017-11-13] MEDS ORDERED: Levothyroxine 75 MCG Tab PO SCH (07:00)
[2017-11-13] MEDS: Metoprolol Tartrate 25 MG Tab PO SCH (07:44)
[2017-11-13] MEDS: Insulin Aspart 100 Units/ML 3 ML Pen SUBCUT SCH (07:47)
[2017-11-13] MEDS ORDERED: Clopidogrel 75 MG Tab PO SCH (08:00)
[2017-11-13] MEDS ORDERED: glipiZIDE 2.5 MG Tab.ER PO SCH (08:00)
[2017-11-13] MEDS ORDERED: amLODIPine 5 MG Tab PO SCH (08:00)
[2017-11-13] MEDS ORDERED: Aspirin 81 MG Tab.EC PO SCH (08:00)
--- NOTE | 2017-11-13 09:10 | PCM.DCSUM1 ---
Discharge Summary - Discharge Data Discharge Disposition: Home, Self-Care 01 Condition: Good - Discharge Plan Home Medications: Home Meds Amoxicillin/Potassium Clav [Augmentin 875-125 Tablet] 1 each PO BID 10 Days #20 tablet 11/11/17 [Rx] Ascorbic Acid [Vitamin C] 250 mg PO DAILY 11/12/17 [History] Aspirin [Halfprin] 81 mg PO DAILY 11/12/17 [History] Calcium Carb & Citrate/Vit D3 [Calcium + D3 ER Tablet] 2 each PO DAILY 11/12/17 [History] Cholecalciferol (Vitamin D3) [Vitamin D3] 5,000 unit PO DAILY 11/12/17 [History] Clopidogrel [Plavix] 75 mg PO DAILY 11/12/17 [History] Cyanocobalamin (Vitamin B-12) [B-12] 1,000 mcg PO DAILY 11/12/17 [History] Ferrous Sulfate 325 mg PO DAILY 11/12/17 [History] Folic Acid 1 mg PO DAILY 11/12/17 [History] Furosemide [Lasix] 40 mg PO DAILY 11/12/17 [History] Levothyroxine 75 mcg PO ACBREAKFAST 11/12/17 [History] Lidocaine/Prilocaine [EMLA Crm] 1 dose TP ASDIRECTED PRN 11/12/17 [History] Lisinopril 40 mg PO DAILY 11/12/17 [History] Lovastatin 20 mg PO BEDTIME 11/12/17 [History] Metoprolol Tartrate [Lopressor] 12.5 mg PO BID 11/12/17 [History] Multivitamin with Minerals [Multiple Vitamin] 1 tab PO DAILY 11/12/17 [History] Nitroglycerin 0.4 mg SL Q5M PRN 11/12/17 [History] Ondansetron HCl [Zofran] 8 mg PO TID PRN 11/12/17 [History] Potassium Chloride [Klor-Con M20] 40 meq PO DAILY 11/12/17 [History] Prochlorperazine Maleate [Compazine] 10 mg PO QID PRN 11/12/17 [History] Ubidecarenone [Coenzyme Q10] 100 mg PO DAILY 11/12/17 [History] amLODIPine Besylate [Amlodipine Besylate] 5 mg PO DAILY 11/12/17 [History] glipiZIDE [Glipizide ER] 2.5 mg PO DAILY 11/12/17 [History] metFORMIN [Glucophage] 1,000 mg PO BIDMEALS 11/12/17 [History] Forms: ED Department Discharge Referrals: Marcin Schaefer III, DO [Primary Care Provider] - 11/16/17 2:30 pm (You have a follow up appt. with Dr. Schaefer on November 16, 2017 at 2:30--[facility]) - Patient Data Vitals - Most Recent: Last Vital Signs Temp 36.7 C 11/13/17 05:48 Pulse 78 11/13/17 05:48 Resp 20 11/13/17 05:48 BP 125/61 11/13/17 07:44 Pulse Ox 94 L 11/13/17 05:48 Weight - Most Recent: 75.931 kg I&O - Last 24 hours: Intake & Output 11/12/17 11/13/17 11/13/17 22:59 06:59 14:59 Intake Total 1710 120 Output Total 200 1400 Balance -200 310 120 Lab Results - Last 24 hrs: Laboratory Results - last 24 hr 11/12/17 11/12/17 11/12/17 Range/Units 17:14 17:54 19:51 WBC (4.0-10.0) x10^3/uL RBC (4.00-5.50) x10^6/uL Hgb (12.0-16.0) g/dL Hct (33.0-47.0) % MCV (78.0-93.0) fL MCH (26.0-32.0) pg MCHC (32.0-36.0) g/dL RDW Coeff of [place] (10.0-15.0) % Plt Count (130-400) x10^3/uL Neut % (Auto) (50.0-80.0) % Lymph % (Auto) (25.0-50.0) % [place] % (Auto) (2.0-11.0) % Eos % (Auto) (0.0-4.0) % Baso % (Auto) (0.2-1.2) % Sodium (136-145) mmol/L Potassium (3.5-5.1) mmol/L Chloride (98-107) mmol/L Carbon Dioxide (21-32) mmol/L BUN (7-18) mg/dL Creatinine (0.55-1.02) mg/dL Est Cr Clr Drug Dosing mL/min Estimated GFR (MDRD) Glucose (74-106) mg/dL POC Glucose 364 H 275 H (74-106) mg/dL Lactic Acid 2.2 H* (0.4-2.0) mmol/L Calcium (8.5-10.1) mg/dL C-Reactive Protein (<=0.9) mg/dL 11/13/17 11/13/17 11/13/17 Range/Units 06:12 06:51 06:51 WBC 8.5 (4.0-10.0) x10^3/uL RBC 2.51 L (4.00-5.50) x10^6/uL Hgb 8.4 L D (12.0-16.0) g/dL Hct 25.2 L (33.0-47.0) % MCV 100.4 H (78.0-93.0) fL MCH 33.5 H (26.0-32.0) pg MCHC 33.3 (32.0-36.0) g/dL RDW Coeff of [place] 12.7 (10.0-15.0) % Plt Count 122 L (130-400) x10^3/uL Neut % (Auto) 91.7 H (50.0-80.0) % Lymph % (Auto) 6.0 L (25.0-50.0) % [place] % (Auto) 0.6 L (2.0-11.0) % Eos % (Auto) 1.6 (0.0-4.0) % Baso % (Auto) 0.1 L (0.2-1.2) % Sodium 136 (136-145) mmol/L Potassium 3.7 (3.5-5.1) mmol/L Chloride 103 (98-107) mmol/L Carbon Dioxide 22 (21-32) mmol/L BUN 20 H (7-18) mg/dL Creatinine 1.2 H (0.55-1.02) mg/dL Est Cr Clr Drug Dosing 35.52 mL/min Estimated GFR (MDRD) 44 Glucose 171 H (74-106) mg/dL POC Glucose 171 H (74-106) mg/dL Lactic Acid (0.4-2.0) mmol/L Calcium 8.8 (8.5-10.1) mg/dL C-Reactive Protein 32.7 H (<=0.9) mg/dL 11/13/17 Range/Units 06:51 WBC (4.0-10.0) x10^3/uL RBC (4.00-5.50) x10^6/uL Hgb (12.0-16.0) g/dL Hct (33.0-47.0) % MCV (78.0-93.0) fL MCH (26.0-32.0) pg MCHC (32.0-36.0) g/dL RDW Coeff of [place] (10.0-15.0) % Plt Count (130-400) x10^3/uL Neut % (Auto) (50.0-80.0) % Lymph % (Auto) (25.0-50.0) % [place] % (Auto) (2.0-11.0) % Eos % (Auto) (0.0-4.0) % Baso % (Auto) (0.2-1.2) % Sodium (136-145) mmol/L Potassium (3.5-5.1) mmol/L Chloride (98-107) mmol/L Carbon Dioxide (21-32) mmol/L BUN (7-18) mg/dL Creatinine (0.55-1.02) mg/dL Est Cr Clr Drug Dosing mL/min Estimated GFR (MDRD) Glucose (74-106) mg/dL POC Glucose (74-106) mg/dL Lactic Acid 0.7 (0.4-2.0) mmol/L Calcium (8.5-10.1) mg/dL C-Reactive Protein (<=0.9) mg/dL Med Orders - Current: Current Medications Acetaminophen (Tylenol) 650 mg PO Q4H PRN PRN Reason: Pain (Mild 1-3)/fever Amlodipine Besylate (Norvasc) 5 mg PO DAILY [facility] Last Admin: 11/13/17 07:43 Dose: 5 mg Aspirin (Halfprin) 81 mg PO DAILY [facility] Last Admin: 11/13/17 07:43 Dose: 81 mg Clopidogrel Bisulfate (Plavix) 75 mg PO DAILY [facility] Last Admin: 11/13/17 07:44 Dose: 75 mg Glipizide (Glucotrol Xl) 2.5 mg PO DAILY [facility] Last Admin: 11/13/17 07:43 Dose: 2.5 mg Insulin Aspart (Novolog) 0 unit SUBCUT TIDMEALS [facility] PRN Reason: Protocol Last Admin: 11/13/17 07:47 Dose: 1 units Levothyroxine Sodium (Levothyroxine) 75 mcg PO ACBREAKFAST [facility] Last Admin: 11/13/17 06:13 Dose: 75 mcg Lidocaine/Prilocaine (Emla Crm) 0 gm TOP ASDIRECTED PRN PRN Reason: port access Melatonin (Melatonin) 3 mg PO BEDTIME [facility] Last Admin: 11/12/17 21:03 Dose: 3 mg Metoprolol Tartrate (Lopressor) 12.5 mg PO BID [facility] Last Admin: 11/13/17 07:44 Dose: 12.5 mg Non-Form (Lovastatin 20 Mg) 20 mg PO BEDTIME [facility] Ondansetron HCl (Zofran Odt) 8 mg PO TID PRN PRN Reason: NAUSEA Sodium Chloride (Saline Flush) 10 ml FLUSH ASDIRECTED PRN PRN Reason: Keep Vein Open Discontinued Medications Azithromycin (Zithromax) 500 mg PO ONETIME ONE Stop: 11/12/17 13:30 Last Admin: 11/12/17 13:45 Dose: 500 mg Cefepime HCl (Maxipime) 2 gm IV ONETIME ONE Stop: 11/12/17 12:03 Last Admin: 11/12/17 12:42 Dose: 2 gm Sodium Chloride (Normal Saline) 1,000 mls @ 999 mls/hr IV ONETIME ONE Stop: 11/12/17 13:04 Last Admin: 11/12/17 12:42 Dose: 999 mls/hr Lactated Ringer's (Ringers, Lactated) 1,000 mls @ 100 mls/hr IV ASDIRECTED [facility] Stop: 11/13/17 03:31 Last Admin: 11/12/17 17:44 Dose: 100 mls/hr *Q Meaningful Use (DIS) - VTE *Q VTE Criteria *Q: - Stroke *Q Stroke Criteria *Q: - AMI *Q AMI Criteria *Q:
[2017-11-13] MEDS ORDERED: Sodium Chloride 0.9% 10 ML Syringe IV PRN (09:15)
--- NOTE | 2017-11-13 10:14 | PCM.DCSUM1 ---
Discharge Summary - Hospital Course Brief History: Mrs. Sparks is a 72 yo female who was admitted for presumed community acquired pneumonia and dehydration after presenting with generalized weakness. The day before she had been seen in the ER for chest/scapular pain that had resolved by the time she presented yesterday. - Discharge Data Discharge Date: 11/13/17 Discharge Disposition: Home, Self-Care 01 Condition: Good - Discharge Diagnosis/Problem(s) (1) Community acquired pneumonia SNOMED Code(s): 820685461 ICD Code: J18.9 - PNEUMONIA, UNSPECIFIED ORGANISM Status: Acute Current Visit: Yes Problem Details: Patient never really had traditional symptoms. Only symptom really was the left chest/scapula pain, which is now resolved. However, her exam and chest x-ray findings suggested a left lower lobe pneumonia. There was no other convincing evidence of an alternative source. Therefore, she was treated for pneumonia with cefepime and azithromycin and responded quickly to this. Qualifiers: Laterality: left Lung location: lower lobe of lung Qualified Code(s): J18.1 - Lobar pneumonia, unspecified organism (2) Sepsis SNOMED Code(s): 38509397 ICD Code: A41.9 - SEPSIS, UNSPECIFIED ORGANISM Status: Acute Current Visit: Yes Problem Details: Met sepsis criteria on admission with tachycardia and leukocytosis. Likely source is pneumonia as above. Antibiotics as above. Initial lactate elevated; back to normal this am with IV fluids. Blood cultures pending but negative thus far. Qualifiers: Sepsis type: sepsis due to unspecified organism Qualified Code(s): A41.9 - Sepsis, unspecified organism (3) Acute kidney injury (nontraumatic) SNOMED Code(s): 91232524 ICD Code: N17.9 - ACUTE KIDNEY FAILURE, UNSPECIFIED Status: Acute Current Visit: Yes Problem Details: Creatinine up to 1.6 on admission from baseline of 1.1-1.2. Is back to normal today with IV fluids yesterday/ overnight. (4) Atrial fibrillation SNOMED Code(s): 96613955 ICD Code: I48.91 - UNSPECIFIED ATRIAL FIBRILLATION Status: Acute Current Visit: Yes Problem Details: EKG in the ER showed atrial fibrillation with controlled ventricular response. She had converted back to sinus rhythm by the time she arrived to the floor, meaning this was a duration of less than 24 hours. In light of this as well as the fact she is on dual antiplatelet therapy , anticoagulation was not started. She will need to follow-up with her PCP and get established with a risk consultant. Qualifiers: Atrial fibrillation type: paroxysmal Qualified Code(s): I48.0 - Paroxysmal atrial fibrillation (5) Coronary artery disease SNOMED Code(s): 10661770 ICD Code: I25.10 - ATHSCL HEART DISEASE OF [place] CORONARY ARTERY W/O ANG PCTRS Status: Chronic Current Visit: Yes Problem Details: Underwent PCI in September and is doing well. Ruled out for cardiac cause of symptoms day before admission. Home medications continued. Qualifiers: Coronary Disease-Associated Artery/Lesion type: [place] artery [place] vs. transplanted heart: [place] heart Associated angina: without angina Qualified Code(s): I25.10 - Atherosclerotic heart disease of [place] coronary artery without angina pectoris (6) Diabetes mellitus SNOMED Code(s): 04158953 ICD Code: E11.9 - TYPE 2 DIABETES MELLITUS WITHOUT COMPLICATIONS Status: Chronic Current Visit: Yes Problem Details: Glucoses high on admission but have come down nicely. Metformin was held but can be restarted on discharge. Glipizide continued. Qualifiers: Diabetes mellitus type: type 2 Diabetes mellitus complication status: without complication Diabetes mellitus exterminator helper termite insulin use: without exterminator helper termite use Qualified Code(s): E11.9 - Type 2 diabetes mellitus without complications (7) Hypertension SNOMED Code(s): 67920058 ICD Code: I10 - ESSENTIAL (PRIMARY) HYPERTENSION Status: Chronic Current Visit: Yes Problem Details: BP's acceptable. Her lisinopril and lasix were held due to acute kidney injury. Will have her hold her lasix until follow-up with PCP but she can restart her lisinopril on homegoing. Amlodipine and metoprolol continued. Qualifiers: Hypertension type: essential hypertension Qualified Code(s): I10 - Essential (primary) hypertension (8) Hypothyroidism SNOMED Code(s): 92922323 ICD Code: E03.9 - HYPOTHYROIDISM, UNSPECIFIED Status: Chronic Current Visit: Yes Problem Details: Levothyroxine continued. Qualifiers: Hypothyroidism type: acquired Qualified Code(s): E03.9 - Hypothyroidism, unspecified (9) Breast cancer, stage 4 SNOMED Code(s): 879133920 ICD Code: C50.919 - MALIGNANT NEOPLASM OF UNSP SITE OF UNSPECIFIED FEMALE BREAST Status: Chronic Current Visit: Yes Problem Details: Patient's oncologist was contacted and did not feel she required transfer to [place]. Her chemotherapy agent is not likely to cause significant neutropenia or other issues. Qualifiers: Laterality: unspecified laterality Qualified Code(s): C50.919 - Malignant neoplasm of unspecified site of unspecified female breast - Patient Summary/Data Operative Procedure(s) Performed: none Complications: none Consults: none Labs Pending at D/C: blood cultures Recommended Follow-up Testing/Procedures: CBC, BMP on Thursday Planned Operative Procedure(s) after DC: none Hospital Course: Patient quickly improved and is feeling back to normal the morning after admission. Although it was recommended that she stay 1 more night in the hospital, she prefers to discharge home. Given dramatic improvement in symptoms and labs, this is not unreasonable. Therefore, she will be discharged on azithromycin and augmentin and will follow up with her PCP on Thursday, 11/16. - Patient Instructions Diet: Usual Diet as Tolerated Activity: As Tolerated - Discharge Plan Prescriptions/Med Rec: Azithromycin [IJP: Azithromycin] 250 mg PO DAILY #4 tab Home Medications: Home Meds Amoxicillin/Potassium Clav [Augmentin 875-125 Tablet] 1 each PO BID 10 Days #20 tablet 11/11/17 [Rx] Ascorbic Acid [Vitamin C] 250 mg PO DAILY 11/12/17 [History] Aspirin [Halfprin] 81 mg PO DAILY 11/12/17 [History] Calcium Carb & Citrate/Vit D3 [Calcium + D3 ER Tablet] 2 each PO DAILY 11/12/17 [History] Cholecalciferol (Vitamin D3) [Vitamin D3] 5,000 unit PO DAILY 11/12/17 [History] Clopidogrel [Plavix] 75 mg PO DAILY 11/12/17 [History] Cyanocobalamin (Vitamin B-12) [B-12] 1,000 mcg PO DAILY 11/12/17 [History] Ferrous Sulfate 325 mg PO DAILY 11/12/17 [History] Folic Acid 1 mg PO DAILY 11/12/17 [History] Levothyroxine 75 mcg PO ACBREAKFAST 11/12/17 [History] Lidocaine/Prilocaine [EMLA Crm] 1 dose TP ASDIRECTED PRN 11/12/17 [History] Lisinopril 40 mg PO DAILY 11/12/17 [History] Lovastatin 20 mg PO BEDTIME 11/12/17 [History] Metoprolol Tartrate [Lopressor] 12.5 mg PO BID 11/12/17 [History] Multivitamin with Minerals [Multiple Vitamin] 1 tab PO DAILY 11/12/17 [History] Nitroglycerin 0.4 mg SL Q5M PRN 11/12/17 [History] Ondansetron HCl [Zofran] 8 mg PO TID PRN 11/12/17 [History] Prochlorperazine Maleate [Compazine] 10 mg PO QID PRN 11/12/17 [History] Ubidecarenone [Coenzyme Q10] 100 mg PO DAILY 11/12/17 [History] amLODIPine Besylate [Amlodipine Besylate] 5 mg PO DAILY 11/12/17 [History] glipiZIDE [Glipizide ER] 2.5 mg PO DAILY 11/12/17 [History] metFORMIN [Glucophage] 1,000 mg PO BIDMEALS 11/12/17 [History] Azithromycin [IJP: Azithromycin] 250 mg PO DAILY #4 tab 11/13/17 [Rx] Forms: ED Department Discharge Referrals: Marcin Schaefer III, DO [Primary Care Provider] - 11/16/17 2:30 pm (You have a follow up appt. with Dr. Schaefer on November 16, 2017 at 2:30--[facility]) - Discharge Summary/Plan Comment DC Time >30 min.: No - General Info Date of Service: 11/13/17 Subjective Update: Patient did not sleep well as she finds the beds uncomfortable. Really wanting to get home today. Is feeling well. Denies any palpitations, nausea, or chest pain. Feeling back to her usual self. - Review of Systems General: Reports: No Symptoms HEENT: Reports: No Symptoms Pulmonary: Reports: No Symptoms Cardiovascular: Reports: No Symptoms Gastrointestinal: Reports: No Symptoms Genitourinary: Reports: No Symptoms Musculoskeletal: Reports: No Symptoms Skin: Reports: No Symptoms - Patient Data Vitals - Most Recent: Last Vital Signs Temp 36.7 C 11/13/17 05:48 Pulse 78 11/13/17 05:48 Resp 20 11/13/17 05:48 BP 125/61 11/13/17 07:44 Pulse Ox 94 L 11/13/17 05:48 Weight - Most Recent: 75.931 kg I&O - Last 24 hours: Intake & Output 11/12/17 11/13/17 11/13/17 22:59 06:59 14:59 Intake Total 1710 120 Output Total 200 1400 Balance -200 310 120 Lab Results - Last 24 hrs: Laboratory Results - last 24 hr 11/12/17 11/12/17 11/12/17 Range/Units 17:14 17:54 19:51 WBC (4.0-10.0) x10^3/uL RBC (4.00-5.50) x10^6/uL Hgb (12.0-16.0) g/dL Hct (33.0-47.0) % MCV (78.0-93.0) fL MCH (26.0-32.0) pg MCHC (32.0-36.0) g/dL RDW Coeff of [place] (10.0-15.0) % Plt Count (130-400) x10^3/uL Neut % (Auto) (50.0-80.0) % Lymph % (Auto) (25.0-50.0) % [place] % (Auto) (2.0-11.0) % Eos % (Auto) (0.0-4.0) % Baso % (Auto) (0.2-1.2) % Sodium (136-145) mmol/L Potassium (3.5-5.1) mmol/L Chloride (98-107) mmol/L Carbon Dioxide (21-32) mmol/L BUN (7-18) mg/dL Creatinine (0.55-1.02) mg/dL Est Cr Clr Drug Dosing mL/min Estimated GFR (MDRD) Glucose (74-106) mg/dL POC Glucose 364 H 275 H (74-106) mg/dL Lactic Acid 2.2 H* (0.4-2.0) mmol/L Calcium (8.5-10.1) mg/dL C-Reactive Protein (<=0.9) mg/dL 11/13/17 11/13/17 11/13/17 Range/Units 06:12 06:51 06:51 WBC 8.5 (4.0-10.0) x10^3/uL RBC 2.51 L (4.00-5.50) x10^6/uL Hgb 8.4 L D (12.0-16.0) g/dL Hct 25.2 L (33.0-47.0) % MCV 100.4 H (78.0-93.0) fL MCH 33.5 H (26.0-32.0) pg MCHC 33.3 (32.0-36.0) g/dL RDW Coeff of [place] 12.7 (10.0-15.0) % Plt Count 122 L (130-400) x10^3/uL Neut % (Auto) 91.7 H (50.0-80.0) % Lymph % (Auto) 6.0 L (25.0-50.0) % [place] % (Auto) 0.6 L (2.0-11.0) % Eos % (Auto) 1.6 (0.0-4.0) % Baso % (Auto) 0.1 L (0.2-1.2) % Sodium 136 (136-145) mmol/L Potassium 3.7 (3.5-5.1) mmol/L Chloride 103 (98-107) mmol/L Carbon Dioxide 22 (21-32) mmol/L BUN 20 H (7-18) mg/dL Creatinine 1.2 H (0.55-1.02) mg/dL Est Cr Clr Drug Dosing 35.52 mL/min Estimated GFR (MDRD) 44 Glucose 171 H (74-106) mg/dL POC Glucose 171 H (74-106) mg/dL Lactic Acid (0.4-2.0) mmol/L Calcium 8.8 (8.5-10.1) mg/dL C-Reactive Protein 32.7 H (<=0.9) mg/dL 11/13/17 Range/Units 06:51 WBC (4.0-10.0) x10^3/uL RBC (4.00-5.50) x10^6/uL Hgb (12.0-16.0) g/dL Hct (33.0-47.0) % MCV (78.0-93.0) fL MCH (26.0-32.0) pg MCHC (32.0-36.0) g/dL RDW Coeff of [place] (10.0-15.0) % Plt Count (130-400) x10^3/uL Neut % (Auto) (50.0-80.0) % Lymph % (Auto) (25.0-50.0) % [place] % (Auto) (2.0-11.0) % Eos % (Auto) (0.0-4.0) % Baso % (Auto) (0.2-1.2) % Sodium (136-145) mmol/L Potassium (3.5-5.1) mmol/L Chloride (98-107) mmol/L Carbon Dioxide (21-32) mmol/L BUN (7-18) mg/dL Creatinine (0.55-1.02) mg/dL Est Cr Clr Drug Dosing mL/min Estimated GFR (MDRD) Glucose (74-106) mg/dL POC Glucose (74-106) mg/dL Lactic Acid 0.7 (0.4-2.0) mmol/L Calcium (8.5-10.1) mg/dL C-Reactive Protein (<=0.9) mg/dL Med Orders - Current: Current Medications Acetaminophen (Tylenol) 650 mg PO Q4H PRN PRN Reason: Pain (Mild 1-3)/fever Amlodipine Besylate (Norvasc) 5 mg PO DAILY [facility] Last Admin: 11/13/17 07:43 Dose: 5 mg Aspirin (Halfprin) 81 mg PO DAILY [facility] Last Admin: 11/13/17 07:43 Dose: 81 mg Clopidogrel Bisulfate (Plavix) 75 mg PO DAILY [facility] Last Admin: 11/13/17 07:44 Dose: 75 mg Glipizide (Glucotrol Xl) 2.5 mg PO DAILY [facility] Last Admin: 11/13/17 07:43 Dose: 2.5 mg Heparin Sodium (Porcine) (Heparin Lock Flush 100 Units/Ml) 500 units IVPUSH ASDIRECTED PRN PRN Reason: Keep Vein Open Last Admin: 11/13/17 09:46 Dose: 500 units Insulin Aspart (Novolog) 0 unit SUBCUT TIDMEALS [facility] PRN Reason: Protocol Last Admin: 11/13/17 07:47 Dose: 1 units Levothyroxine Sodium (Levothyroxine) 75 mcg PO ACBREAKFAST [facility] Last Admin: 11/13/17 06:13 Dose: 75 mcg Lidocaine/Prilocaine ([place] Crm) 0 gm TOP ASDIRECTED PRN PRN Reason: port access Melatonin (Melatonin) 3 mg PO BEDTIME [facility] Last Admin: 11/12/17 21:03 Dose: 3 mg Metoprolol Tartrate (Lopressor) 12.5 mg PO BID [facility] Last Admin: 11/13/17 07:44 Dose: 12.5 mg Non-Form (Lovastatin 20 Mg) 20 mg PO BEDTIME [facility] Ondansetron HCl (Zofran Odt) 8 mg PO TID PRN PRN Reason: NAUSEA Sodium Chloride (Saline Flush) 10 ml FLUSH ASDIRECTED PRN PRN Reason: Keep Vein Open Sodium Chloride (Saline Flush) 20 ml IV ASDIRECTED PRN PRN Reason: Keep Vein Open Last Admin: 11/13/17 09:46 Dose: 20 ml Discontinued Medications Azithromycin (Zithromax) 500 mg PO ONETIME ONE Stop: 11/12/17 13:30 Last Admin: 11/12/17 13:45 Dose: 500 mg Cefepime HCl (Maxipime) 2 gm IV ONETIME ONE Stop: 11/12/17 12:03 Last Admin: 11/12/17 12:42 Dose: 2 gm Sodium Chloride (Normal Saline) 1,000 mls @ 999 mls/hr IV ONETIME ONE Stop: 11/12/17 13:04 Last Admin: 11/12/17 12:42 Dose: 999 mls/hr Lactated Ringer's (Ringers, Lactated) 1,000 mls @ 100 mls/hr IV ASDIRECTED [facility] Stop: 11/13/17 03:31 Last Admin: 11/12/17 17:44 Dose: 100 mls/hr - Exam General: Reports: Alert, Oriented, Cooperative, No Acute Distress HEENT: Reports: Mucous Membr. Moist/[place] Neck: Reports: Supple, Trachea Midline, No Thyromegaly. Denies: Lymphadenopathy Lungs: Reports: Clear to Auscultation, Normal Respiratory Effort Cardiovascular: Reports: Regular Rate, Regular Rhythm, No Murmurs GI/Abdominal Exam: Normal Bowel Sounds, Soft, Non-Tender, No Organomegaly, No Distention, No Mass Extremities: Normal Inspection, Non-Tender, No Pedal Edema, Normal Capillary Refill Skin: Reports: Warm, Dry, Intact *Q Meaningful Use (DIS) - VTE *Q VTE Criteria *Q: - Stroke *Q Stroke Criteria *Q: - AMI *Q AMI Criteria *Q:
[2017-11-13 10:18] VITALS: BP 139/84
== END 2017-11-13 11:13 | disposition home or self-care (01) | DRG 871 ==
LOC: VM.ED 10:15 → VM.MS 12:00
PROVIDERS: ADMIT Family Medicine; ATTEND Family Medicine
DX: A41.9 Sepsis, unspecified organism (principal); J18.9 Pneumonia, unspecified organism; R91.8 Other nonspecific abnormal finding of lung field; N17.9 Acute kidney failure, unspecified; C78.00 Secondary malignant neoplasm of unspecified lung; R53.1 Weakness; Z85.3 Personal history of malignant neoplasm of breast; E86.0 Dehydration; I48.91 Unspecified atrial fibrillation; E11.9 Type 2 diabetes mellitus without complications; I25.10 Atherosclerotic heart disease of native coronary artery without angina pectoris; I10 Essential (primary) hypertension; E03.9 Hypothyroidism, unspecified; C50.919 Malignant neoplasm of unspecified site of unspecified female breast; Z88.8 Allergy status to other drugs, medicaments and biological substances; Z79.84 Long term (current) use of oral hypoglycemic drugs; Z79.02 Long term (current) use of antithrombotics/antiplatelets; Z79.82 Long term (current) use of aspirin; Z79.899 Other long term (current) drug therapy
CPT/HCPCS: 36415; 71046; 80048; 82962; 83605; 85025; 86140; 87040; 93005; 96374; 99284-GF; 99285; A9270-GY; J0692; J1642; J1815-GY; J7030; J7050; J7120

== ENCOUNTER 2018-05-24 09:03 | Emergency (ER) | payer MEDICARE, OTHER ==
[2018-05-24] MEDS ORDERED: Sodium Chloride 0.9% 1,000 ML IV ONE ×2 (09:31→10:19)
[2018-05-24] MEDS ORDERED: Ondansetron 4 MG/2 ML SDV IVPUSH ONE (09:33)
[2018-05-24 09:50] LABS: CHLORIDE,CL 104 mmol/L (98-107); SODIUM,NA 134 mmol/L (136-145)
[2018-05-24 09:51] LABS: ANION GAP 13.2 mmol/L (10-20)
[2018-05-24 10:06] VITALS: BP 118/67
--- NOTE | 2018-05-24 10:09 | EDM.PDOC ---
ED HPI GENERAL MEDICAL PROBLEM - General Chief Complaint: General Stated Complaint: Nausea; not feeling well, weakness Time Seen by Provider: 05/24/18 09:19 Source of Information: Reports: Patient, Family, Old Records, RN, RN Notes Reviewed History Limitations: Reports: No Limitations - History of Present Illness INITIAL COMMENTS - FREE TEXT/NARRATIVE: Patient presents to the ED at [facility] complaining of weakness, nausea, anorexia, and swallowing difficulties. She was last seen by Oncology 2017. She was recently started on Taxol. She has overall been doing well. She has stopped tamoxifen because of hot flashes. Initially magnesium helped but then they worsened again. She was intolerant to AI therapy. She retried tamoxifen and then discontinued it again for hot flashes. Her niece has been diagnosed with a second breast cancer and was found to be a carrier for gene mutation. She had genetic testing done She was positive for BRCA-1. She was referred to Dr. Calhoun for HOMER/BSO and through that workup was found to have an indeterminate pulmonary nodule and hilar lymphadenopathy. This was biopsied. It showed breast cancer, ER positive, HER-2/deepali negative. After discussing options she elected to retry tamoxifen. She developed weakness, nausea, shortness of breath. She went off the tamoxifen and these symptoms resolved. Therefore we started faslodex. She has felt great on it. She is having more achiness that is migratory and in places where she has previously had pain.. Some mild injection site reaction. Ibrance was added. CT scan showed progression Her breathing improved after her first cycle of chemo. She does feel weaker and has been having consitpation. She had increasing shortness of breath and when I saw her last she had chest pressure. I referred her to ER. She was found to have NSTEMI and had two stents placed. She did have pneumonia and was vomiting after her last treatment. It is not clear if it was from treatment or from flu. Her blood sugars did get very elevated and she had polyuria. She was found to be dehydrated in the ER. She had flu like symptoms again after this cycle of chemo. It lasted for several days. She had her optuse coronary vessel stented last week. She is recovering well from that. She is tolerated arimidex well. She had some mild nausea but then switched to taking it at night and that resolved. Interval history: She was admitted to [place] on 05/05/2018 with increasing swallowing, dehydration. It was found she has progressive cancer in the mediastinum. So started taxol weekly. Patient had a follow up appointment with Onc on 2017. No changes were made at that time. Patient was seen by speech therapy during that admit. Speech recommendation was to continue current diet of regular solid and thin liquids. Duration: Chronic - Related Data Allergies Allergy/AdvReac Type Severity Reaction Status Date / Time Eonalmk-Kbl-Axt Reductase AdvReac Other Verified 05/24/18 11:59 Inhibitor Home Meds: Home Meds Ascorbic Acid [Vitamin C] 250 mg PO DAILY 11/12/17 [History] Aspirin [Halfprin] 81 mg PO DAILY 11/12/17 [History] Cholecalciferol (Vitamin D3) [Vitamin D3] 5,000 unit PO DAILY 11/12/17 [History] Clopidogrel [Plavix] 75 mg PO DAILY 11/12/17 [History] Levothyroxine 75 mcg PO ACBREAKFAST 11/12/17 [History] Lisinopril 40 mg PO DAILY 11/12/17 [History] Metoprolol Tartrate [Lopressor] 25 mg PO BID 11/12/17 [History] Nitroglycerin 0.4 mg SL Q5M PRN 11/12/17 [History] Ondansetron HCl [Zofran] 8 mg PO TID PRN 11/12/17 [History] amLODIPine Besylate [Amlodipine Besylate] 5 mg PO DAILY 11/12/17 [History] metFORMIN [Glucophage] 1,000 mg PO BIDMEALS 11/12/17 [History] Furosemide 40 mg PO DAILY PRN 01/19/18 [History] Cyanocobalamin (Vitamin B-12) [B-12] 1,000 mcg PO DAILY 05/24/18 [History] Folic Acid 1 mg PO DAILY 05/24/18 [History] Lidocaine/Prilocaine [EMLA Crm] 1 dose TP ASDIRECTED PRN 05/24/18 [History] Prochlorperazine Maleate [Compazine] 10 mg PO QID PRN 05/24/18 [History] Sennosides/Docusate Sodium [Senna-S] 1 each PO DAILY 05/24/18 [History] Ubidecarenone [Co Q-10] 50 mg PO DAILY 05/24/18 [History] oxyCODONE 5 mg PO Q4H PRN 05/24/18 [History] Past Medical History HEENT History: Reports: None Cardiovascular History: Reports: CAD, High Cholesterol, Hypertension, [place], PTCA Respiratory History: Reports: Other (See Below) 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 Gastrointestinal History: Reports: None Genitourinary History: Reports: None 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: Reports: Musculoskeletal History: Reports: None Neurological History: Reports: None Psychiatric History: Reports: None Endocrine/Metabolic History: Reports: Diabetes, Type II, Hypothyroidism Hematologic History: Reports: None Immunologic History: Reports: None Oncologic (Cancer) History: Reports: Breast, Other (See Below) Other Oncologic History: Recently diagnosed with stage 4 breast cancer Dermatologic History: Reports: None - Infectious Disease History Infectious Disease History: Reports: None - Past Surgical History HEENT Surgical History: Reports: Tonsillectomy Female Surgical History: Reports: Hysterectomy, Mastectomy, Oophorectomy Other Female Surgeries/Procedures: Bilateral masectomy Oncologic Surgical History: Reports: Mastectomy Other Oncologic Surgeries/Procedures: Bilateral Social & Family History - Family History Cardiac: Reports: CAD Endocrine/Metabolic: Reports: Diabetes, type II, Hypothyroidism - Living Situation & Occupation Living situation: Reports: , Alone Occupation: Retired ED ROS GENERAL - Review of Systems Review Of Systems: See Below Constitutional: Reports: Weakness, Fatigue. Denies: Fever, Chills HEENT: Reports: Other (complains of dysphagia which is chronic; was seen by speech about 3 weeks ago at [place]). Denies: Throat Pain, Throat Swelling Respiratory: Denies: Shortness of Breath, Cough Cardiovascular: Denies: Chest Pain, Palpitations GI/Abdominal: Reports: Nausea. Denies: Abdominal Pain, Vomiting Skin: Reports: No Symptoms Neurological: Reports: Weakness. Denies: Dizziness, Headache ED EXAM, GENERAL - Physical Exam Exam: See Below Exam Limited By: No Limitations General Appearance: Alert, No Apparent Distress Throat/Mouth: Normal Inspection, No Airway Compromise Neck: Supple Respiratory/Chest: No Respiratory Distress, Lungs Clear, Normal Breath Sounds Cardiovascular: Normal Peripheral Pulses, Regular Rate, Rhythm Peripheral Pulses: 2+: Radial (L), Radial (R) GI/Abdominal: Soft, Non-Tender, Abnormal Bowel Sounds (Hypoactive) Neurological: Alert, Oriented Skin Exam: Warm, Dry, Intact, Normal Color Course - Vital Signs Last Recorded V/S: Last Vital Signs Temp 35.9 C 05/24/18 09:10 Pulse 93 05/24/18 09:10 Resp 16 05/24/18 09:10 BP 118/67 05/24/18 09:10 Pulse Ox 96 05/24/18 09:10 - Orders/Labs/Meds Orders: Active Orders 24 hr Category Date Time Status Magnesium Sulfate/Water [Magnesium Sulfate 2 GM in Med 05/24/18 10:17 Active Water 50 ML] 2 gm Premix Bag 1 bag IV ONETIME Medication Orders Magnesium Sulfate 2 gm/ Premix 50 mls @ 25 mls/hr IV ONETIME ONE Stop: 05/24/18 12:16 Last Admin: 05/24/18 10:36 Dose: 25 mls/hr Labs: Laboratory Tests 05/24/18 05/24/18 05/24/18 Range/Units 09:25 09:25 09:25 WBC 2.6 L (4.0-10.0) x10^3/uL RBC 3.34 L (4.00-5.50) x10^6/uL Hgb 10.1 L D (12.0-16.0) g/dL Hct 30.3 L (33.0-47.0) % MCV 90.7 D (78.0-93.0) fL MCH 30.2 (26.0-32.0) pg MCHC 33.3 (32.0-36.0) g/dL RDW Coeff of Nakia 14.6 (10.0-15.0) % Plt Count 266 D (130-400) x10^3/uL Neut % (Auto) 78.1 (50.0-80.0) % Lymph % (Auto) 13.8 L (25.0-50.0) % [place] % (Auto) 4.2 (2.0-11.0) % Eos % (Auto) 3.5 (0.0-4.0) % Baso % (Auto) 0.4 (0.2-1.2) % Sodium 134 L (136-145) mmol/L Potassium 4.2 (3.5-5.1) mmol/L Chloride 104 (98-107) mmol/L Carbon Dioxide 21 (21-32) mmol/L Anion Gap 13.2 (10-20) mmol/L BUN 25 H (7-18) mg/dL Creatinine 1.3 H (0.55-1.02) mg/dL Est Cr Clr Drug Dosing TNP Estimated GFR (MDRD) 40 Glucose 162 H (74-106) mg/dL Calcium 8.7 (8.5-10.1) mg/dL Corrected Calcium 9.74 (8.5-10.1) mg/dL Magnesium 1.4 L (1.8-2.4) mg/dL Total Bilirubin 0.4 (0.2-1.0) mg/dL AST 15 (15-37) U/L ALT 21 (14-59) U/L Alkaline Phosphatase 70 (46-116) U/L Total Protein 7.0 (6.4-8.2) g/dL Albumin 2.7 L (3.4-5.0) g/dL Globulin 4.3 Albumin/Globulin Ratio 0.63 Meds: Medications Generic Name Dose Route Start Last Admin Trade Name Freq PRN Reason Stop Dose Admin Magnesium Sulfate 2 gm/ Premix 50 mls @ 25 mls/hr 05/24/18 10:17 05/24/18 10: 36 IV 05/24/18 12:16 25 mls/hr ONETIME ONE Administration Discontinued Medications Generic Name Dose Route Start Last Admin Trade Name Freq PRN Reason Stop Dose Admin Sodium Chloride 1,000 mls @ 999 mls/hr 05/24/18 09:31 05/24/18 09:45 Normal Saline IV 05/24/18 10:31 999 mls/hr ONETIME ONE Administration Sodium Chloride 1,000 mls @ 999 mls/hr 05/24/18 10:19 05/24/18 10:42 Normal Saline IV 05/24/18 11:19 999 mls/hr ONETIME ONE Administration Ondansetron HCl 4 mg 05/24/18 09:33 05/24/18 09:52 Zofran IVPUSH 05/24/18 09:34 4 mg ONETIME ONE Administration - Re-Assessments/Exams Free Text/Narrative Re-Assessment/Exam: 05/24/18 11:49 Rechecked patient. States she is feeling better with the IVF and meds. Will continue to monitor. Free Text/Narrative Re-Assessment/Exam: 05/24/18 12:17 Patient continues to feel better. She ate lunch well. Patient requesting discharge to home at this time. Departure - Departure Time of Disposition: 12:17 Disposition: Home, Self-Care 01 Condition: Good Clinical Impression: Nausea, Weakness - Discharge Information *PRESCRIPTION DRUG MONITORING PROGRAM REVIEWED*: Not Applicable *COPY OF PRESCRIPTION DRUG MONITORING REPORT IN PATIENT KIMBERLY: Not Applicable Instructions: Nausea, Adult, Weakness Referrals: PCP,Unknown [Primary Care Provider] - Forms: ED Department Discharge Additional Instructions: 1. Stay well hydrated and rest 2. See your Primary as symptoms warrant - Problem List Review Problem List Initiated/Reviewed/Updated: Yes - My Orders Last 24 Hours: My Active Orders 05/24/18 10:17 Magnesium Sulfate/Water [Magnesium Sulfate 2 GM in Water 50 ML] 2 gm Premix Bag 1 bag IV ONETIME - Assessment/Plan Last 24 Hours: My Active Orders 05/24/18 10:17 Magnesium Sulfate/Water [Magnesium Sulfate 2 GM in Water 50 ML] 2 gm Premix Bag 1 bag IV ONETIME Assessment:: Nausea Dehydration Hypomagnesemia Breast Cancer Plan: 10:34 Labs discussed with patient. Will give 2L of IVF for dehydration. Will try Zofran for nausea. Give 2 grams of Magnesium to start with and see how patient does. We will keep her as extended ER patient for the fluids and Magnesium. Will reassess after all is infused.
[2018-05-24] MEDS ORDERED: Magnesium Sulfate/Water 2 GM in Premix Bag 1 BAG IV ONE (10:17)
[2018-05-24] MEDS ORDERED: Sodium Chloride 0.9% 10 ML Syringe FLUSH ONE (12:43)
== END 2018-05-24 12:47 | disposition home or self-care (01) ==
LOC: VM.ED 09:03
DX: E86.0 Dehydration (principal); R11.0 Nausea; E83.42 Hypomagnesemia; R53.1 Weakness; I10 Essential (primary) hypertension; C50.919 Malignant neoplasm of unspecified site of unspecified female breast; I25.2 Old myocardial infarction; E11.9 Type 2 diabetes mellitus without complications; E03.9 Hypothyroidism, unspecified; Z88.8 Allergy status to other drugs, medicaments and biological substances; Z79.899 Other long term (current) drug therapy; Z79.82 Long term (current) use of aspirin; Z79.84 Long term (current) use of oral hypoglycemic drugs
CPT/HCPCS: 36415; 80053; 83735; 85025; 96361; 96365; 96366; 96375; 99285; J1642; J2405; J3475; J7030; J7050

== ENCOUNTER 2018-12-19 14:38 | Emergency (ER) | payer MEDICARE, OTHER ==
[2018-12-19 14:58] VITALS: BP 137/82
--- NOTE | 2018-12-19 15:03 | EDM.PDOC ---
ED HPI GENERAL MEDICAL PROBLEM - General Chief Complaint: Laceration Stated Complaint: FELL AND HIT HER HEAD Time Seen by Provider: 12/19/18 14:50 Source of Information: Reports: Patient History Limitations: Reports: No Limitations - History of Present Illness INITIAL COMMENTS - FREE TEXT/NARRATIVE: Patient comes into the emergency department with complaints of right upper eye laceration. Patient states that she was trying to get out of the car and was reaching across open the door handle and was leaning to far over when the door opened she fell landing on the side of her face. Patient denies losing consciousness, blurred vision, headache, dizziness, or any CMS changes. He states she hit something sharp causing a laceration to the right upper eyelid. It is localized pain just to that specific area. She has not had any difficulty opening her eye or vision concerns. Onset: Sudden Severity: Mild Improves with: Reports: None Worsens with: Reports: None Associated Symptoms: Reports: No Other Symptoms - Related Data Allergies Allergy/AdvReac Type Severity Reaction Status Date / Time Idplego-Mku-Rfg Reductase AdvReac Other Verified 12/19/18 14:46 Inhibitor Home Meds: Home Meds Ascorbic Acid [Vitamin C] 250 mg PO DAILY 11/12/17 [History] Aspirin [Halfprin] 81 mg PO DAILY 11/12/17 [History] Cholecalciferol (Vitamin D3) [Vitamin D3] 5,000 unit PO DAILY 11/12/17 [History] Clopidogrel [Plavix] 75 mg PO DAILY 11/12/17 [History] Levothyroxine 75 mcg PO ACBREAKFAST 11/12/17 [History] Lisinopril 40 mg PO DAILY 11/12/17 [History] Metoprolol Tartrate [Lopressor] 25 mg PO BID 11/12/17 [History] Nitroglycerin 0.4 mg SL Q5M PRN 11/12/17 [History] Ondansetron HCl [Zofran] 8 mg PO TID PRN 11/12/17 [History] amLODIPine Besylate [Amlodipine Besylate] 5 mg PO DAILY 11/12/17 [History] metFORMIN [Glucophage] 1,000 mg PO BIDMEALS 11/12/17 [History] Furosemide 40 mg PO DAILY PRN 01/19/18 [History] Cyanocobalamin (Vitamin B-12) [B-12] 1,000 mcg PO DAILY 05/24/18 [History] Folic Acid 1 mg PO DAILY 05/24/18 [History] Lidocaine/Prilocaine [EMLA Crm] 1 dose TP ASDIRECTED PRN 05/24/18 [History] Prochlorperazine Maleate [Compazine] 10 mg PO QID PRN 05/24/18 [History] Sennosides/Docusate Sodium [Senna-S] 1 each PO DAILY 05/24/18 [History] Ubidecarenone [Co Q-10] 50 mg PO DAILY 05/24/18 [History] oxyCODONE 5 mg PO Q4H PRN 05/24/18 [History] Past Medical History HEENT History: Reports: None Cardiovascular History: Reports: CAD, High Cholesterol, Hypertension, [place], PTCA Respiratory History: Reports: Other (See Below) 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 Gastrointestinal History: Reports: None Genitourinary History: Reports: None 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 History: Reports: None Neurological History: Reports: None Psychiatric History: Reports: None Endocrine/Metabolic History: Reports: Diabetes, Type II, Hypothyroidism Hematologic History: Reports: None Immunologic History: Reports: None Oncologic (Cancer) History: Reports: Breast, Other (See Below) Other Oncologic History: Recently diagnosed with stage 4 breast cancer Dermatologic History: Reports: None - Infectious Disease History Infectious Disease History: Reports: None - Past Surgical History HEENT Surgical History: Reports: Tonsillectomy Female Surgical History: Reports: Hysterectomy, Mastectomy, Oophorectomy Other Female Surgeries/Procedures: Bilateral masectomy Oncologic Surgical History: Reports: Mastectomy Other Oncologic Surgeries/Procedures: Bilateral Social & Family History - Family History Cardiac: Reports: CAD Endocrine/Metabolic: Reports: Diabetes, type II, Hypothyroidism - Living Situation & Occupation Living situation: Reports: , Alone Occupation: Retired ED ROS GENERAL - Review of Systems Review Of Systems: See Below Constitutional: Reports: No Symptoms HEENT: Reports: No Symptoms Respiratory: Reports: No Symptoms Cardiovascular: Reports: No Symptoms Endocrine: Reports: No Symptoms GI/Abdominal: Reports: No Symptoms : Reports: No Symptoms Musculoskeletal: Reports: No Symptoms Skin: Reports: Wound Neurological: Reports: No Symptoms Psychiatric: Reports: No Symptoms Hematologic/Lymphatic: Reports: No Symptoms Immunologic: Reports: No Symptoms ED EXAM, SKIN/RASH Exam: See Below Exam Limited By: No Limitations General Appearance: Alert, WD/WN, No Apparent Distress Eye Exam: Right Eye: Other (laceration noted right yupper eye lid ), Bilateral Eye: EOMI, PERRL Ears: Normal External Exam, Normal Canal, Hearing Grossly Normal, Normal TMs Nose: Normal Inspection, Normal Mucosa Head: Atraumatic, Normocephalic Neck: Normal Inspection, Supple, Non-Tender, Full Range of Motion Respiratory/Chest: No Respiratory Distress, Lungs Clear, Normal Breath Sounds, No Accessory Muscle Use, Chest Non-Tender Cardiovascular: Normal Peripheral Pulses, Regular Rate, Rhythm Back Exam: Normal Inspection, Full Range of Motion Extremities: Normal Inspection, Normal Range of Motion, Non-Tender Neurological: Alert, Oriented, CN II-XII Intact, Normal Cognition, Normal Gait Psychiatric: Normal Affect, Normal Mood Skin: Warm, Dry, Intact, Normal Color ED SKIN PROCEDURES - Laceration/Wound Repair Right Lower Lateral Other Lac/Wound length In cm: 1 (right upper lateral eye lid ) Appearance: Superficial, Linear, Clean Distal NVT: Neuro & Vascular Intact, No Tendon Injury Exploration/Debridement/Repair: No Foreign Material Found Closed with: Wound Adhesive Tetanus Status Addressed: No Complications: No Departure - Departure Time of Disposition: 15:00 Disposition: Home, Self-Care 01 Condition: Good Clinical Impression: Laceration - Discharge Information *PRESCRIPTION DRUG MONITORING PROGRAM REVIEWED*: Not Applicable *COPY OF PRESCRIPTION DRUG MONITORING REPORT IN PATIENT KIMBERLY: Not Applicable Instructions: Laceration Care, Adult, [id number], Stitches, [place], or Adhesive Wound Closure, [id number] Additional Instructions: 1. rest 2. apply ice to the area 3-4 days for 20 mins at a time to help with the swelling 3. Can take Renetta for Tylenol help with the pain and discomfort 4. Acute getting up from a seated and lying position slowly to help reduce any dizzy spells 5. Follow-up with PCP for any concerns or complaints as needed 6. Avoid submerging or soaking laceration and water initially pools or hot tubs. showering is okay 7. Call with any questions or concerns - Assessment/Plan Assessment:: 1. laceration Plan: 1. wound cleaning completed 2. Wound adhesive applied 3. Education provided regarding wound care, activity, diet, and follow up provided 4. All questions and concerns addressed prior to discharge
== END 2018-12-19 15:15 | disposition home or self-care (01) ==
LOC: VM.ED 14:38
DX: S01.111A Laceration without foreign body of right eyelid and periocular area, initial encounter (principal); I25.10 Atherosclerotic heart disease of native coronary artery without angina pectoris; E78.00 Pure hypercholesterolemia, unspecified; I10 Essential (primary) hypertension; I25.2 Old myocardial infarction; E11.9 Type 2 diabetes mellitus without complications; E03.9 Hypothyroidism, unspecified; Z88.8 Allergy status to other drugs, medicaments and biological substances; Z79.84 Long term (current) use of oral hypoglycemic drugs; W18.39XA Other fall on same level, initial encounter
CPT/HCPCS: 12011; 99282